=== PATIENT | female | born 1965 | race Caucasian/White ===

== ENCOUNTER → 2018-08-05 | Day surgery (SDC) | payer OTHER ==
[~2018-08-05] MED LIST: IV RINGERS,LACTATED 1000ML 1,000 ML IV SCH; PROPOFOL 40 ML IV ONE
[2018-08-05 14:46] VITALS: BP 111/75
== END | disposition home or self-care (01) ==
LOC: ENDOS 12:45
PROVIDERS: ATTEND Internal Medicine Gastroenterology
DX: Z12.11 Encounter for screening for malignant neoplasm of colon (principal); K57.30 Diverticulosis of large intestine without perforation or abscess without bleeding; K64.0 First degree hemorrhoids; Z82.49 Family history of ischemic heart disease and other diseases of the circulatory system; Z72.89 Other problems related to lifestyle
CPT/HCPCS: 45378; J2704

== ENCOUNTER → 2019-08-04 | Outpatient (CLI) | payer OTHER ==
[2018-08-05 14:46] VITALS: BP 111/75
--- NOTE | 2019-08-04 11:20 | RAD ---
EXAM: CHEST PA LATERAL INDICATION: Invasive lobular right breast cancer. TECHNIQUE: PA and lateral views COMPARISON: None FINDINGS: The heart size is normal. The great vessels appear unremarkable. There is no hilar or mediastinal mass. The lungs are clear. There is no pleural effusion or pneumothorax. There are no significant osseous abnormalities. Surgical clips in the right breast and axilla are noted. IMPRESSION: Right breast and axillary postop changes with no evidence of metastatic disease in the chest by x-ray. Electronically signed by: Foreign Sarmiento MD (08/04/2019 11:17 AM) [id number]
== END | disposition home or self-care (01) ==
LOC: RAD 10:31
PROVIDERS: ATTEND Radiology Radiation Oncology
DX: C50.911 Malignant neoplasm of unspecified site of right female breast (principal); Z98.890 Other specified postprocedural states
CPT/HCPCS: 71046